=== PATIENT | female | born 1940 | race Caucasian/White ===

== ENCOUNTER → 2017-03-08 | Outpatient (CLI) | payer OTHER | LOC: BHLMT 14:45 | PROVIDERS: ATTEND Internal Medicine Cardiovascular Disease | DX: R94.31 Abnormal electrocardiogram [ECG] [EKG] (principal); I71.9 Aortic aneurysm of unspecified site, without rupture; R55 Syncope and collapse | CPT/HCPCS: 93225-PO; 93226-PO; 93306-PO ==